=== PATIENT | male | born 1960 | race Caucasian/White ===

== ENCOUNTER 2020-08-23 05:15 | Outpatient (RCR) | payer MEDICARE, SELFPAY ==
[2020-08-23 09:20] VITALS: BP 113/69; PULSE 44; RESP 18; TEMP 37.1; O2SAT 99
[2020-08-23] MEDS: NATALIZUMAB 300 MG in Normal Saline 100 ML 115 MG IV (09:21)
[2020-08-23] MEDS: Normal Saline Flush 10 ML SYR IVP (09:22)
[2020-08-23 10:24] VITALS: BP 106/68; PULSE 44; RESP 18; TEMP 37; O2SAT 98
[2020-08-23] MEDS: Normal Saline 1,000 ML 500 ML IV (10:30)
== END 2020-09-15 23:59 | disposition home or self-care (01) ==
LOC: INF 05:15
PROVIDERS: PCP Family Medicine; Visit Provider Family Medicine
DX: R97.20 Elevated prostate specific antigen [PSA] (principal); G35 Multiple sclerosis
CPT/HCPCS: 96360; 96361; 96365; J2323

== ENCOUNTER 2020-08-27 01:08 | Outpatient (CLI) | payer MEDICARE, SELFPAY ==
--- NOTE | 2020-08-27 | DI.MRI_ITS ---
EXAM: MR CERVICAL SPINE WO CLINICAL HISTORY: MULTIPLE SCLEROSIS, G35 TECHNIQUE: Multiplanar multisequence MRI of the cervical spine was performed without intravenous con trast. COMPARISON: No previous for comparison. FINDINGS: BONES: Vertebral body heights are maintained. Intervertebral disc spaces are normal. Alignment is nor mal. Bone marrow signal intensity is within normal limits. CERVICAL CORD: Craniovertebral junction is unremarkable. There does appear to be an area of hyperinte nse signal within the spinal cord at the T2-T3 level. There also is a faint area of increased signal within the spinal cord at the C3 level. SOFT TISSUES: Unremarkable. C2-3: No disc herniation or bulge is identified. No significant central spinal canal or neural forami nal stenosis. C3-4: No disc herniation or bulge is identified. No significant central spinal canal or neural forami nal stenosis C4-5: No disc herniation or bulge is identified. No significant central spinal canal or neural forami nal stenosis C5-6: There is mild prominence of the osteophyte disc complex. No significant central spinal canal o r neural foraminal stenosis C6-7: There is a mild diffuse disc bulge. No significant central spinal canal or neural foraminal st enosis C7-T1: No disc herniation or bulge is identified. No significant central spinal canal or neural karol inal stenosis IMPRESSION: Hyperintense signal seen in the spinal cord at the C3 level and the T2-T3 level. Spinal cord lesions related to the patient's multiple sclerosis should be considered. If there are prior examinations o f the cervical spine, they may be submitted for comparison. DATA REPOSITORY:
--- NOTE | 2020-08-27 | DI.MRI_ITS ---
EXAM: MR BRAIN WO CLINICAL HISTORY: MULTIPLE SCLEROSIS, G35,LENA VIRUS ANTIBODY +,R78.8,Z51.81. TECHNIQUE: Multiplanar multisequence MRI of the brain was performed. CONTRAST MATERIAL: noncontrast. COMPARISON: No exams were available for comparison FINDINGS: There is moderate atrophy, disproportionate to the patient's age. There are multiple bilateral foci of high signal in the periventricular white matter, including corpus callosum, consistent with multip le sclerosis. No lesions show restricted diffusion. No cerebellar or brainstem lesions are seen. T he ventricles are normal in size. The orbits, sinuses and mastoid air cells are unremarkable. IMPRESSION: Numerous periventricular high signal foci with a pattern consistent with multiple sclerosis. DATA REPOSITORY:
== END 2020-08-27 01:28 ==
PROVIDERS: PCP Family Medicine; Visit Provider Family Medicine
DX: G35 Multiple sclerosis (principal)
CPT/HCPCS: 70551; 72141

== ENCOUNTER 2020-10-11 11:00 | Outpatient (RCR) | payer MEDICARE, SELFPAY ==
[2020-09-16 00:10] VITALS: BP 106/68; PULSE 44; RESP 18; TEMP 37
[2020-10-11 11:12] VITALS: BP 134/78; PULSE 54; RESP 18; TEMP 36.5; O2SAT 98
[2020-10-11] MEDS: NATALIZUMAB 300 MG in Normal Saline 100 ML 115 MG IV (11:33)
[2020-10-11] MEDS: Normal Saline Flush 10 ML SYR IVP (11:34)
[2020-10-11] MEDS: Normal Saline 1,000 ML 500 ML IV (12:34)
[2020-10-11 13:30] VITALS: BP 112/67; PULSE 44; RESP 16; TEMP 36.8; O2SAT 99
[2020-10-11 17:32] LABS: PSA, Diagnostic 0.3 ng/mL (0.0-4.5)
== END 2020-10-13 23:59 | disposition home or self-care (01) ==
LOC: INF 11:00
PROVIDERS: PCP Family Medicine; Visit Provider Family Medicine
DX: R97.20 Elevated prostate specific antigen [PSA] (principal); G35 Multiple sclerosis
CPT/HCPCS: 36415; 96360; 96361; 96365; 84153; J2323

== ENCOUNTER 2020-11-21 01:39 | Outpatient (RCR) | payer MEDICARE, SELFPAY ==
[2020-10-14 00:07] VITALS: BP 112/67; PULSE 44; RESP 16; TEMP 36.8
[2020-11-21 11:18] VITALS: BP 117/67; PULSE 50; RESP 16; TEMP 36.6; O2SAT 98
[2020-11-21] MEDS: Normal Saline Flush 10 ML SYR IVP (11:19)
[2020-11-21] MEDS: NATALIZUMAB 300 MG in Normal Saline 100 ML 115 MG IV (11:35)
[2020-11-21] MEDS: Normal Saline 500 ML IV (12:43)
[2020-11-21 13:35] VITALS: BP 109/64; PULSE 63; RESP 16; TEMP 36.7; O2SAT 100
== END 2020-12-13 23:59 | disposition home or self-care (01) ==
LOC: INF 01:39
PROVIDERS: PCP Family Medicine; Visit Provider Family Medicine
DX: R97.20 Elevated prostate specific antigen [PSA] (principal)
CPT/HCPCS: 96365; J2323

== ENCOUNTER 2021-05-22 02:42 | Outpatient (RCR) | payer MEDICARE, SELFPAY ==
[2021-05-22 11:10] VITALS: BP 101/65; PULSE 47; RESP 18; TEMP 36.6; O2SAT 100
[2021-05-22] MEDS: Normal Saline Flush 10 ML SYR IVP (11:13)
[2021-05-22] MEDS: NATALIZUMAB 300 MG in Normal Saline 100 ML 115 MG IV (11:26)
[2021-05-22] MEDS: Normal Saline 500 ML IV (12:27)
[2021-05-22 13:35] VITALS: BP 115/72; PULSE 46; RESP 18; TEMP 36.7; O2SAT 100
== END 2021-06-15 23:59 | disposition home or self-care (01) ==
LOC: INF 02:42
PROVIDERS: PCP Family Medicine; Visit Provider Internal Medicine
DX: R97.20 Elevated prostate specific antigen [PSA] (principal)
CPT/HCPCS: 96361; 96365; 96366; J2323

== ENCOUNTER 2021-08-28 02:23 | Outpatient (CLI) | payer MEDICARE, SELFPAY ==
--- NOTE | 2021-08-28 | DI.MRI_ITS ---
Exam(s) MR BRAIN WO EXAM: MR BRAIN WO CLINICAL HISTORY: MS,G35,LENA VIRUS ANTIBODY,R76.8,ENCOUNTER NATALIZUMAB THERAPY,Z51.81 TECHNIQUE: Multiplanar multisequence MRI of the brain was performed. COMPARISON: MR MRI BRAIN WITH AND WITHOUT IV CONTRAST from 01/19/2020 MR MR BRAIN WO from 08/27/2020 MR MR CERVICAL SPINE WO from 08/27/2020 FINDINGS: VENTRICLES AND EXTRA AXIAL SPACES: Normal in size and morphology for the patient's age. HEMORRHAGE: None. CEREBRAL PARENCHYMA: Btzv-ez-nazbkkci atrophy, stable. Multiple bilateral, roughly symmetric periven tricular white matter lesions have a stable appearance. The findings have a typical appearance of mu ltiple sclerosis. No focus of restricted diffusion to suggest acute infarct. No space-occupying lesi on identified. MIDLINE SHIFT: None. BRAINSTEM/CEREBELLUM: Normal. VISUALIZED PARANASAL SINUSES/MASTOIDS: Clear. OTHER FINDINGS: Vascular flow voids are intact. IMPRESSION: Stable appearance of bilateral periventricular white matter lesions consistent with multiple sclerosi s. DATA REPOSITORY:
--- NOTE | 2021-08-28 | DI.MRI_ITS ---
Exam(s) MR CERVICAL SPINE WO EXAM: MR CERVICAL SPINE WO CLINICAL HISTORY: MS,G35,ENCOUNTER FOR MONITORING NATALIZUMAB THERAPY,Z51.81 TECHNIQUE: Multiplanar multisequence MRI of the cervical spine was performed without intravenous con trast. COMPARISON: MR MR CERVICAL SPINE WO from 08/27/2020 FINDINGS: BONES: Vertebral body heights are maintained. Intervertebral disc spaces are normal. Alignment is nor mal. Bone marrow signal intensity is within normal limits. CERVICAL CORD: Craniovertebral junction is unremarkable. The cervical cord is normal size and signal intensity. SOFT TISSUES: Unremarkable. Discs: Mild disc bulging at C5-6. IMPRESSION: Normal cord signal. Minimal degenerative changes.. DATA REPOSITORY:
== END 2021-08-28 02:43 ==
PROVIDERS: PCP Family Medicine; Visit Provider Physician Assistant
DX: Z51.81 Encounter for therapeutic drug level monitoring (principal); G35 Multiple sclerosis; R76.8 Other specified abnormal immunological findings in serum
CPT/HCPCS: 70551; 72141

== ENCOUNTER 2023-05-20 03:55 | Outpatient (RCR) | payer MEDICARE, SELFPAY ==
[2023-05-20] MEDS: NATALIZUMAB 300 MG in Normal Saline 100 ML 115 MG IV (11:29)
[2023-05-20] MEDS: Normal Saline Flush 10 ML SYR IVP (11:30)
[2023-05-20 12:43] LABS: Abs Immature Grans 0.03 10^3/uL (0.0-0.06); Absolute Basophil Count 0.04 10^3/uL (0.0-0.2); Absolute Eosinophil Count 0.17 10^3/uL (0.0-0.7); Absolute Lymphocyte Count 1.95 10^3/uL (1.2-3.4); Absolute Monocyte Count 0.67 10^3/uL (0.1-0.8); Absolute Neutrophil Count 2.85 10^3/uL (1.2-6.7); Basophils % 0.7; HCT 34.5 % (40.0-50.0); Immature Grans % 0.5; Lymphocytes % 34.2; MCH 29.8 pg (27.0-33.0); MCHC 34.8 % (32.0-36.0); MCV 86 fL (80-95); MPV 9.9 fL (8.0-11.0); Monocytes % 11.7; Neutrophils % 49.9; Platelet Count 229 10^3/uL (130-400); RBC 4.03 10^6/uL (4.36-5.78); RDW 13.2 % (11.8-14.1); WBC 5.71 10^3/uL (4.4-10.8)
[2023-05-20 12:54] LABS: ALT 28 U/L (16-63); AST 22 U/L (15-37); Albumin 3.7 g/dL (3.4-5.0); Alkaline Phosphatase 62 U/L (46-116); Bilirubin, Direct 0.2 mg/dL (0.0-0.2); Bilirubin, Total 0.8 mg/dL (0.2-1.0); Total Protein 6.9 g/dL (6.4-8.2)
[2023-06-18 13:08] LABS: Stratify JCV Antibody INDETERMINATE (Negative)
== END 2023-06-15 23:59 | disposition home or self-care (01) ==
LOC: INF 03:55
PROVIDERS: PCP Family Medicine; Visit Provider Nurse Practitioner Acute Care
DX: G35 Multiple sclerosis (principal)
CPT/HCPCS: 36415; 80076; 96365; 85025; J2323

== ENCOUNTER 2023-07-01 04:20 | Outpatient (RCR) | payer MEDICARE, SELFPAY ==
[2023-07-01 11:25] VITALS: BP 110/64; PULSE 44; RESP 16; TEMP 36.8; O2SAT 98
[2023-07-01] MEDS: NATALIZUMAB 300 MG in Normal Saline 100 ML 115 MG IV (11:34)
[2023-07-01] MEDS: Normal Saline Flush 10 ML SYR IVP (11:35)
[2023-07-01 12:35] VITALS: BP 113/70; PULSE 51; RESP 17; TEMP 36.8; O2SAT 98
== END 2023-07-15 23:59 | disposition home or self-care (01) ==
LOC: INF 04:20
PROVIDERS: PCP Nurse Practitioner Family; Visit Provider Nurse Practitioner Acute Care
DX: G35 Multiple sclerosis (principal)
CPT/HCPCS: 96365; J2323

== ENCOUNTER 2023-09-02 12:29 | Outpatient (CLI) | payer MEDICARE, SELFPAY ==
[2023-09-02 12:38] LABS: Abs Immature Grans 0.03 10^3/uL (0.0-0.06); Absolute Basophil Count 0.04 10^3/uL (0.0-0.2); Absolute Eosinophil Count 0.18 10^3/uL (0.0-0.7); Absolute Lymphocyte Count 2.15 10^3/uL (1.2-3.4); Absolute Monocyte Count 0.76 10^3/uL (0.1-0.8); Absolute Neutrophil Count 3.41 10^3/uL (1.2-6.7); Basophils % 0.6; Eosinophils % 2.7; HCT 36.8 % (40.0-50.0); HGB 12.2 g/dL (13.5-17.5); Immature Grans % 0.5; Lymphocytes % 32.7; MCH 29.1 pg (27.0-33.0); MCHC 33.2 % (32.0-36.0); MCV 88 fL (80-95); MPV 8.9 fL (8.0-11.0); Monocytes % 11.6; Neutrophils % 51.9; Nucleated RBC 0.3 % (0.0-0.3); Platelet Count 224 10^3/uL (130-400); RBC 4.19 10^6/uL (4.36-5.78); RDW 14.5 % (11.8-14.1); RDW-SD 46.5 fL; Reticulocyte 1.4 % (0.5-2.4); WBC 6.57 10^3/uL (4.4-10.8)
[2023-09-02 12:58] LABS: Calculated LDL 83 mg/dL (<100); Cholesterol 197 mg/dL (<200); HDL Cholesterol 97 mg/dL (40-60); Triglyceride 87 mg/dL (<150)
[2023-09-02 13:18] LABS: Ferritin 16 ng/mL (26-388); Folate 8.9 ng/mL (8.6-20.0); Vitamin B12 1030 pg/mL (193-986)
[2023-09-16 16:29] LABS: PSA, Screening 0.3 ng/mL (<or=4.5)
== END 2023-09-02 12:30 | disposition home or self-care (01) ==
LOC: LBO 12:29
PROVIDERS: PCP Nurse Practitioner Family; Visit Provider Internal Medicine Hematology & Oncology
DX: D64.9 Anemia, unspecified (principal); Z13.6 Encounter for screening for cardiovascular disorders; Z12.5 Encounter for screening for malignant neoplasm of prostate
CPT/HCPCS: 36415; 80061; 84153; 82607; 82728; 82746; 85025; 85045

== ENCOUNTER 2023-09-23 02:01 | Outpatient (RCR) | payer MEDICARE, SELFPAY ==
[2023-07-16 00:08] VITALS: BP 113/70; PULSE 51; RESP 17; TEMP 36.8
[2023-09-23] MEDS: NATALIZUMAB 300 MG in Normal Saline 100 ML 115 MG IV (11:45)
[2023-09-23] MEDS: Normal Saline Flush 10 ML SYR IVP (11:46)
[2023-09-23 11:53] LABS: HCT 35.3 % (40.0-50.0); HGB 12.1 g/dL (13.5-17.5); MCH 29.2 pg (27.0-33.0); MCHC 34.3 % (32.0-36.0); MCV 85 fL (80-95); MPV 9.3 fL (8.0-11.0); Platelet Count 211 10^3/uL (130-400); RBC 4.14 10^6/uL (4.36-5.78); RDW-SD 43.6 fL; WBC 6.34 10^3/uL (4.4-10.8)
[2023-09-23 12:05] LABS: ALT 31 U/L (16-63); AST 20 U/L (15-37); Albumin 3.8 g/dL (3.4-5.0); Alkaline Phosphatase 54 U/L (46-116); Bilirubin, Direct 0.2 mg/dL (0.0-0.2); Bilirubin, Total 0.5 mg/dL (0.2-1.0); Total Protein 6.8 g/dL (6.4-8.2)
[2023-10-13 08:50] LABS: Stratify JCV Antibody See Comments (Negative)
== END 2023-10-14 23:59 | disposition home or self-care (01) ==
LOC: INF 02:01
PROVIDERS: PCP Nurse Practitioner Family; Visit Provider Nurse Practitioner Acute Care
DX: G35 Multiple sclerosis (principal)
CPT/HCPCS: 36415; 80076; 85027; 96365; J2323

== ENCOUNTER → 2023-09-30 13:31 | Outpatient (BNVA) | payer MEDICARE, SELFPAY | PROVIDERS: PCP Nurse Practitioner Family; Referring Provider Nurse Practitioner Family; Visit Provider Physical Therapy Assistant | DX: Z12.11 Encounter for screening for malignant neoplasm of colon (principal); Z86.010 Personal history of colon polyps ==

== ENCOUNTER 2023-10-13 06:17 | Day surgery (SDC) | payer MEDICARE, SELFPAY ==
--- NOTE | 2023-10-13 06:17 | W.ANESPRE ---
General Info Date of Service Date Performed: 10/13/23 Height: 6 ft 1.5 in Weight: 93.894 kg Body Mass Index (BMI): 26.9 Surgical Procedure: Operation Date: 10/13/23 07:35 Proposed Procedure Side Surgeon arnaldo Fairbanks MD Meds Allergies and Home Medications Allergies Allergy/AdvReac Type Severity Reaction Status Date / Time Penicillins Allergy Unknown Hives Verified 10/13/23 06:36 Home Medication Medication Instructions Recorded cholecalciferol (vitamin D3) 62.5 62.5 mcg PO DAILY 08/25/23 mcg (2,500 unit) capsule cyanocobalamin (vitamin B-12) 2,500 mcg PO DAILY 08/25/23 2,500 mcg tablet finasteride 5 mg tablet 5 mg PO DAILY 08/25/23 natalizumab 300 mg/15 mL 300 mg (15 mL) IV Q6W 08/25/23 intravenous solution (Tysabri) omeprazole 40 mg capsule,delayed 40 mg PO DAILY 08/25/23 release tadalafil 5 mg tablet 5 mg PO DAILY PRN 08/25/23 bisacodyl 5 mg tablet,delayed 5 mg PO ONCE #4 tabs 09/30/23 release (Dulcolax (bisacodyl)) polyethylene glycol 3350 17 17 g PO ONCE #238 grams 09/30/23 gram/dose oral powder aspirin 325 mg capsule 325 mg PO DAILY 10/11/23 Current Visit Medications: Current Medications Generic Name Dose Route Start Last Admin Trade Name Freq PRN Reason Stop Dose Admin Ringer's Solution 1,000 mls @ 80 mls/hr 10/13/23 06:00 IV 10/13/23 23:59 INFUSION NELLIE IV Miscellaneous Supplies 1 each 10/13/23 06:00 Iv Access IV 10/13/23 23:59 DIRECTED NELLIE Sodium Chloride 0 ml 10/13/23 06:00 Normal Saline Flush 10 Ml Syr IV 10/13/23 23:59 PRN PRN Sodium Chloride 0 ml 10/13/23 06:00 Normal Saline 10 Ml Vial IJ 10/13/23 23:59 DIRECTED PRN Sterile Water 0 ml 10/13/23 06:00 Water,Injection,Sterile 10 Ml Vial IJ 10/13/23 23:59 DIRECTED PRN PFSH Active Problems Active Problems: Problem Status Onset Code 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 IBS (irritable bowel syndrome) K58.9 Spastic bladder N32.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 Anxiety F41.9 Multiple sclerosis G35 Medical History Medical History Depression Kidney stone Abnormal stress ECG Surgical History Surgical History History of ureteroscopy (~2017) L ureteroscopy w/ laser lithotripsy and ureteral stent placement, R retrograde scopy w/ stone extraction, stent placement and pyelography Hx of tonsillectomy (~196) History of colon resection (~11/02/17) [place], CT tubulovillous adenoma w/ focus high gr dyplasia, polypoid mass in desc colon Tobacco Smoking/Tobacco Use Status: Never Passive smoking exposure: Yes Second hand exposure: Yes Alcohol Alcohol Intake: current Alcohol intake frequency: a few times a month Alcohol type: beer and wine Substance Use Substance use: Daily Substance use type: marijuana Vital Signs and Lab Results Vital Signs Most Recent Vital Signs in EMR: Temp Pulse Resp BP Pulse Ox 36.6 C 43 L 15 117/73 99 10/13/23 06:20 10/13/23 06:20 10/13/23 06:20 10/13/23 06:20 10/13/23 06:20 Lab Results Blood Type / Crossmatch: No Data to Display Complete Blood Count: White Blood Count 6.34 10^3/uL (4.4-10.8) 09/23/23 11:35 Red Blood Count 4.14 10^6/uL (4.36-5.78) L 09/23/23 11:35 Hemoglobin 12.1 g/dL (13.5-17.5) L 09/23/23 11:35 Hematocrit 35.3 % (40.0-50.0) L 09/23/23 11:35 Platelet Count 211 10^3/uL (130-400) 09/23/23 11:35 Complete Metabolic Panel: Albumin 3.8 g/dL (3.4-5.0) 09/23/23 11:35 Liver Function Panel: Alanine Aminotransferase (ALT/SGPT) 31 U/L (16-63) 09/23/23 11:35 Aspartate Amino Transf (AST/SGOT) 20 U/L (15-37) 09/23/23 11:35 Coagulation Panel: No Data to Display Cardiac Panel: No Data to Display Arterial Blood Gas: No Data to Display Venous Blood Gas: No Data to Display Pancreas Panel: No Data to Display Thyroid Panel: No Data to Display Infectious Disease: No Data to Display Blood Cultures: No Data to Display Toxicology Panel: No Data to Display Anesthesia Assessment and Plan Anesthesia History Personal History: No History of Anesthesia Complications Family History: No Family History of Anesthesia Complications Exercise Tolerance Exercise Tolerance: Metabolic Equivalents>4 Cardiac & Pulmonary Exam Cardiac Exam: Normal S1/S2 Heart Sounds Pulmonary Exam: Clear Bilateral Breath Sounds Implantable Cardiac Device Does patient have a Pacemaker or an ICD?: No Airway Exam Known Difficult Airway: No Mallampati Class: 4 Mouth Opening: Normal (> 3cm) Thyromental Distance: Greater than 3 cm Neck Range of Motion: Full ROM Neck Circumference: Normal Teeth Condition: Normal Dentition ASA Classification ASA Score: ASA 2 Emergency Case?: No NPO Status NPO Status: NPO Clears >2 hours, Solids >8 hours Anesthesia Plan Resuscitation Status: Full Code Anesthesia Technique: General Anesthesia Airway Planned: Natural Airway Monitors Used: Standard Monitors Preoperative Comments:: 53 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 Sig PMHx: GERD, depression/anxiety, left foot drop, MS, spasticity. never smoker, occ EtOH.
[2023-10-13 06:20] VITALS: BP 117/73; PULSE 43; RESP 15; TEMP 36.6; O2SAT 99
[2023-10-13] MEDS: Lactated Ringers 1,000 ML 80 ML IV (06:53)
[2023-10-13 07:08] VITALS: BMI 26.9
--- NOTE | 2023-10-13 08:34 | BOWEL_PTH ---
PATIENT: Jayme Martinez LOC: [facility] U#:[id number] AGE/SX: 63/M ROOM: RE10/13/[address]: Kennedy Fairbanks : 1960 BED: DIS: 10/13/2023 SPEC #: [id number] RECD: 10/13/23 12:47 STATUS: BERNICE RE #: [id number] MARELY: 10/13/23 08:[address]: Kennedy Fairbanks DEPT: Surgical Specimen RECD BY: Keiry Watt ENTERED: 10/13/23 12:48 SP TYPE: Bowel OTHR DR: Kain Nunez, PHLEBOTOMY LAB ASSISTANT Tissues: 1 - BIOPSY BOWEL 2 - BIOPSY BOWEL 3 - BIOPSY BOWEL 4 - BIOPSY BOWEL Procedures: GROSS AND MICRO LEVEL 4 Comments: [id number]
[2023-10-13 08:57] VITALS: BP 104/66; PULSE 48; RESP 16; TEMP 36.5; O2SAT 97
--- NOTE | 2023-10-13 09:07 | W.COLOREPORT ---
Date of service: 10/13/23 Time of Service: 09:07 Colonoscopy Report Procedure Description: PROCEDURES PERFORMED: 1. Colonoscopy with hot snare polypectomy x6 2. Ablation/fulguration/destruction of polyp x 4 PREOPERATIVE DIAGNOSIS: Surveillance colonoscopy, Navas syndrome, colorectal polyps POSTOPERATIVE DIAGNOSIS: Same SURGEON: Carlos Eduardo Fairbanks MD INDICATION for procedure: The patient is a 63-year-old man with a history of Navas syndrome, advanced colorectal polyps requiring hemicolectomy, multiple family members with had colon cancer including his father. He gets surveillance colonoscopies every year. FINDINGS: Ileocolonic anastomosis patent and healthy. Normal ileum. No evidence of cancer or polyp around the anastomosis. In the transverse colon to 3-5 mm sessile polyps were removed with hot snare technique. Another smaller 1 was ablated with the tip of the hot snare. In the descending colon at 40 cm a large 15-18 mm pedunculated polyp was removed with hot snare technique. In the sigmoid colon two 3-5 mm sessile polyps were removed with hot snare technique. In the rectum a 3?5 mm polyp was removed with hot snare technique. Between the rectum and sigmoid colon another 3 small polyps were ablated with the tip of the hot snare. There was no obvious diverticular disease and no significant hemorrhoid disease. SURVEILLANCE interval/FOLLOW-UP: 1 year SPECIMENS: yes EBL: Minimal COMPLICATIONS: None QUALITY of prep: Excellent Procedure in detail: The patient gave written consent and was in agreement with the indications, the potential risks as well as the benefits of the procedure. They taken to the endoscopy suite and laid in the left lateral decubitus position. A timeout was performed and anesthesia was administered which was tolerated well. I started the procedure. Digital rectal and visual examination was performed and grossly within normal limits. A well-lubricated flexible colonoscope was then introduced and passed without any notable difficulty all the way into the ileum at the ileocolonic anastomosis the scope was then slowly withdrawn with the above-noted findings. The patient tolerated the procedure well and was taken to the PACU in hemodynamically stable condition.
--- NOTE | 2023-10-13 09:09 | W.ANESPOSTOP ---
Postoperative Evaluation Date, Time and Location Date Performed: 10/13/23 Time Performed: 09:10 Patient Location: Day Surgery Unit Vital Signs Most Recent Imported Vital Signs: Most Recent Vital Signs Temp Pulse Resp BP Pulse Ox 36.5 C 48 L 16 104/66 97 10/13/23 08:57 10/13/23 08:57 10/13/23 08:57 10/13/23 08:57 10/13/23 08:57 Pain Score Most Recent Pain Score: Most Recent Pain Score Pain Level 0 10/13/23 08:57 Assessment Mental Status: Awake (Alert & Oriented to Patient Baseline) Airway and Respiratory Function: Patent airway with normal (patient baseline) respiratory exam Cardiovascular Function: Hemodynamically Stable Hydration Status: Adequately Hydrated Nausea & Vomiting: No Nausea or Vomiting Pain: Pt. Denies Any Pain Peripheral Nerve Block: Patient did not receive a nerve block
--- NOTE | 2023-10-13 09:11 | W.PM.DSUDISC ---
Date of service: 10/13/23 Time of Service: 09:11 Discharge Plan Disposition Patient Disposition: Home Condition: Good Discharge Details Attending Provider: Kennedy Fairbanks Primary Care Provider: Kain Nunez Home Meds and New Rx's Prescriptions: No Action omeprazole 40 mg capsule,delayed release(DR/EC) 40 mg PO DAILY Patient Comments: TAKE ONE CAPSULE BY MOUTH EVERY DAY finasteride 5 mg tablet 5 mg PO DAILY Patient Comments: TAKE ONE TABLET BY MOUTH EVERY DAY tadalafil 5 mg tablet 5 mg PO DAILY PRN Patient Comments: TAKE ONE TABLET BY MOUTH EVERY DAY NEEDED FOR ERECTILE DYSFUNCTION cholecalciferol (vitamin D3) 62.5 mcg (2,500 unit) capsule 62.5 mcg PO DAILY cyanocobalamin (vitamin B-12) 2,500 mcg tablet 2,500 mcg PO DAILY Rx Instructions: 1250mcg daily Tysabri 300 mg/15 mL solution 300 mg IV Q6W Rx Instructions: administer over 60 mins bisacodyl [Dulcolax (bisacodyl)] 5 mg tablet,delayed release (DR/EC) 5 mg PO ONCE Qty: 4 0RF Rx Instructions: Take per colonoscopy instructions provided by ordering providers office polyethylene glycol 3350 17 gram/dose powder 17 g PO ONCE Qty: 238 0RF Rx Instructions: Take per colonoscopy instructions provided by ordering providers office aspirin 325 mg capsule 325 mg PO DAILY Discharge Instructions Additional Instructions: FINDINGS: Multiple polyps (about 10) were found and removed today. This is why you do the colonoscopies. You should do another colonoscopy in 1 year. Discharge Orders Discharge Orders: Discharge Order (Routine); Ordered 10/13/23 Ordered By: Kennedy Fairbanks
[2023-10-13 09:31] VITALS: BP 118/74; PULSE 38; RESP 16; TEMP 36.5; O2SAT 98
== END 2023-10-13 10:00 | disposition home or self-care (01) ==
PROVIDERS: PCP Nurse Practitioner Family; Visit Provider Student in an Organized Health Care Education/Training Program
PROC: 0DJD8ZZ Inspection of Lower Intestinal Tract, Via Natural or Artificial Opening Endoscopic (ICD-10-PCS; CPT 45378; principal; 2023-10-13 07:30)
DX: Z12.11 Encounter for screening for malignant neoplasm of colon (principal); D12.3 Benign neoplasm of transverse colon; Z15.09 Genetic susceptibility to other malignant neoplasm; Z80.0 Family history of malignant neoplasm of digestive organs; Z90.49 Acquired absence of other specified parts of digestive tract; Z98.0 Intestinal bypass and anastomosis status; D12.5 Benign neoplasm of sigmoid colon; D37.4 Neoplasm of uncertain behavior of colon
CPT/HCPCS: 45388; 45385; 00123; 88305; J2704

== ENCOUNTER 2023-11-04 05:14 | Outpatient (RCR) | payer MEDICARE, SELFPAY ==
[2023-10-15 00:01] VITALS: BP 113/70; PULSE 51; RESP 17; TEMP 36.8
[2023-11-04] MEDS: NATALIZUMAB 300 MG in Normal Saline 100 ML 115 MG IV (11:30)
[2023-11-04] MEDS: Normal Saline Flush 10 ML SYR IVP (11:30)
== END 2023-11-14 23:59 | disposition home or self-care (01) ==
LOC: INF 05:14
PROVIDERS: PCP Nurse Practitioner Family; Visit Provider Nurse Practitioner Acute Care
DX: G35 Multiple sclerosis
CPT/HCPCS: 96365; J2323

== ENCOUNTER 2023-11-10 04:46 | Outpatient (CLI) | payer MEDICARE, SELFPAY ==
[2023-11-10 11:15] LABS: Abs Immature Grans 0.02 10^3/uL (0.0-0.06); Absolute Basophil Count 0.04 10^3/uL (0.0-0.2); Absolute Eosinophil Count 0.22 10^3/uL (0.0-0.7); Absolute Lymphocyte Count 2.21 10^3/uL (1.2-3.4); Absolute Monocyte Count 0.74 10^3/uL (0.1-0.8); Absolute Neutrophil Count 3.46 10^3/uL (1.2-6.7); Basophils % 0.6; Eosinophils % 3.3; HCT 38.2 % (40.0-50.0); HGB 13.1 g/dL (13.5-17.5); Immature Grans % 0.3; MCH 30.4 pg (27.0-33.0); MCHC 34.3 % (32.0-36.0); MCV 89 fL (80-95); MPV 8.8 fL (8.0-11.0); Monocytes % 11.1; Neutrophils % 51.7; Platelet Count 197 10^3/uL (130-400); RBC 4.31 10^6/uL (4.36-5.78); RDW 13.6 % (11.8-14.1); RDW-SD 44.7 fL; WBC 6.69 10^3/uL (4.4-10.8)
[2023-11-10 11:45] LABS: Ferritin 128 ng/mL (26-388)
== END 2023-11-10 04:47 | disposition home or self-care (01) ==
PROVIDERS: PCP Nurse Practitioner Family; Visit Provider Internal Medicine Hematology & Oncology
DX: D64.9 Anemia, unspecified (principal)
CPT/HCPCS: 36415; 82728; 85025

== ENCOUNTER 2023-12-16 04:46 | Outpatient (RCR) | payer MEDICARE, SELFPAY ==
[2023-11-15 00:13] VITALS: BP 113/70; PULSE 51; RESP 17; TEMP 36.8
[2023-12-16] MEDS: NATALIZUMAB 300 MG in Normal Saline 100 ML 115 MG IV (11:26)
[2023-12-16] MEDS: Normal Saline Flush 10 ML SYR IVP (11:26)
== END 2024-01-14 23:59 | disposition home or self-care (01) ==
LOC: INF 04:46
PROVIDERS: PCP Nurse Practitioner Family; Visit Provider Nurse Practitioner Acute Care
DX: G35 Multiple sclerosis (principal)
CPT/HCPCS: 96365; J2323

== ENCOUNTER → 2024-01-26 00:10 | Outpatient (CLI) | payer MEDICARE, SELFPAY ==
--- NOTE | 2024-01-26 | DI.MRI_ITS ---
Exam(s) MR CERVICAL SPINE WO EXAM: MR CERVICAL SPINE WO CLINICAL HISTORY: MS, G35 TECHNIQUE: Multiplanar multisequence MRI of the cervical spine was performed without intravenous con trast. COMPARISON: MR MR CERVICAL SPINE WO from 08/28/2021 MR MRI CERVICAL SPINE WO CONTRAST from 01/19/2023 MR MR THORACIC SPINE WO from 01/26/2024 FINDINGS: CERVICOMEDULLARY JUNCTION: Intact with no evidence of cerebellar tonsillar ectopia. No obvious abnor mality of the odontoid process. No evidence of Chiari 1 malformation. CERVICAL SPINAL CORD: There is no abnormal signal in the cervical spinal cord and no evidence of foca l cord atrophy nor focal cord swelling. No evidence of syringomyelia. This patient with apparent known history of multiple sclerosis there is again noted an elongated intr amedullary lesions/plaque in the lateral left side of the spinal cord at C2 level, measuring 2 cm target aircraft technician niocaudal length, unchanged. There is also a longitudinal E orientated intramedullary lesion in the l eft lateral aspect of the spinal cord at C3 level, also unchanged. This measures approximately 1.2 cm craniocaudal length. Another intramedullary area of hyperintense signal abnormality is noted in the right side of the colored at C 2-3 level, unchanged. Lower down there is a similar type lesion in the left side of the cord at T3 level measuring 0.8 cm length. This is better seen on the cervical study than on the thoracic MRI study. OSSEOUS:There are no cervical fractures evident. No significant osseous lesions in the cervical vert ebrae. Cervical curvature is normal. INDIVIDUAL DISC LEVELS: There is preserved disc height and signal at all levels. There is mild central annular bulging at C4- 5 and C6-7 levels. There are no prominent disc herniations. No central spinal canal stenosis. There i s no prominent facet arthropathy nor Luschka joint osteophytes and there is no foraminal stenosis yfn dent in the cervical spinal column. IMPRESSION: 1. Spinal cord lesions consistent with chronic multiple sclerosis plaques at C1 through C3, appearing basically unchanged from the prior study of January 2023. Also plaque at the level of the T3 spinal cor d also appears unchanged. Please note that this is a noninfused study. 2. There is no evidence of focal spinal cord swelling nor atrophy and there is no evidence of syringo myelia. 3. There are no significant disc herniations, central canal stenosis, nor foraminal stenosis. DATA REPOSITORY:
--- NOTE | 2024-01-26 | DI.MRI_ITS ---
Exam(s) MR BRAIN WO EXAM: MR BRAIN WO CLINICAL HISTORY: MS, G35; DEMYELINATING DISORDER, SURVEILLANCE TECHNIQUE: Multiplanar multisequence MRI of the brain was performed. COMPARISON: MR MR BRAIN WO from 08/28/2021 MR MRI CERVICAL SPINE WO CONTRAST from 01/19/2023 FINDINGS: CEREBRAL PARENCHYMA: There is no evidence of intracranial hemorrhage, mass effect, or shift of midline structures. There are no extra-axial fluid collections. Ventricles are not enlarged or shifted. There is no significant focal signal abnormality in the cerebellar hemispheres nor within the alanis, m idbrain, and thalami. Again noted is abundant bilateral periventricular confluent and patchy signal abnormality, including whole Hopper's fingers at the level of the corpus callosum, similar to previous. There is no significant focal signal abnormality evident on diffusion imaging to suggest acute ischem ic event. PITUITARY GLAND: No mass nor parasellar abnormality. No obvious abnormality in the cavernous sinuses. FLOW VOIDS: The expected flow void are noted. No evidence of obvious aneurysm nor obvious vascular ma lformation. PARANASAL SINUSES: The visualized paranasal sinuses appear unremarkable. No obvious finding ORBITS: No obvious findings. IMPRESSION: Abundant bilateral An and supra ventricular signal abnormality consistent with probable combination of demyelinating disease and chronic ischemic changes. Findings exhibit minimal if any significant change when compared to the prior MRI scan of 08/28/2021. No new areas of restricted diffusion. DATA REPOSITORY:
--- NOTE | 2024-01-26 | DI.MRI_ITS ---
Exam(s) MR THORACIC SPINE WO EXAM: MR THORACIC SPINE WO CLINICAL HISTORY: Multiple sclerosis G35 TECHNIQUE: Multiplanar multisequence MRI of the thoracic spine was performed without intravenous con trast. COMPARISON: MR MRI THORACIC SPINE WO CONTRAST from 01/19/2023 FINDINGS: OSSEOUS: There are no acute appearing thoracic vertebral fractures. Multilevel shallow nonacute appea ring Schmorl's nodes. There is a 1 cm size benign intraosseous hemangioma in the left side of the L1 vertebral body, unchanged. There are no ominous osseous lesions in the thoracic vertebrae. SIGNIFICANT DISC SPACE FINDINGS: There is no evidence of disc herniation or central spinal canal sten osis. No evidence of foraminal stenosis. THORACIC SPINAL CORD: There is very subtle cord signal abnormality evident at T2-3 level. Apparently better seen on cervical sequences. There is no evidence of syringomyelia nor significant spinal cord dysraphism. There is no evidence of mass at the conus medullaris. The position of the conus medullaris is at normal level. PARASPINAL TISSUES: Benign benign 1.5 cm cyst noted in the right kidney. IMPRESSION: 1. Subtle abnormal spine cord signal at T2-3, difficult to assess accurately without IV contrast. No cord swelling nor atrophy at this level. 2. No disc herniation or central canal stenosis nor foraminal stenosis. 3. Benign intraosseous hemangioma noted in the left side of L1 vertebral body. See separate cervical spine MRI report DATA REPOSITORY:
--- NOTE | 2024-01-26 20:33 | DI.VRAD_ITS ---
PROCEDURE INFORMATION: Exam: MR Cervical Spine Without Contrast Exam date and time: 01/26/2024 1:33 PM Age: 63 years old Clinical indication: Other: Ms TECHNIQUE: Imaging protocol: Magnetic resonance imaging of the cervical spine without contrast. COMPARISON: MRI CERVICAL SPINE WO CONTRAST 01/19/2023 2:00 PM FINDINGS: Bones/joints: Craniocervical alignment is normal. No fracture or malalignment. Disc desiccation C2-C3 through C5-C6. Minimal 1-2 mm noncompressive posterior central annular protrusions are present at C4-C5 and C6-C7 with slight 1 mm posterior annular bulge C5-C6. No disc extrusion. 6 mm stir hyperintense intramedullary lesion at the level of the odontoid unchanged. Elongated ovoid intramedullary lesion in the left lateral cord at the C2 level measuring 2.2 cm in length unchanged. Elongated ovoid intramedullary lesion in the left lateral cord at the C3 level unchanged. Intramedullary STIR hyperintense lesion in the right lateral cord at the C2-C3 disc level unchanged. There is no cord expansion or hemorrhage. No new cord lesions in the cervical spine. Intramedullary cord lesion at the level of the T3 superior endplate also unchanged. Spinal cord: Cervical spinal cord demonstrates normal contour. No syringohydromyelia. Brain: Poorly marginated mild T2/stir hyperintensity involving the bilateral brachium pontis distributions, and marginally visualized at the right anterolateral pontine margin, suspicious for age-indeterminate changes of demyelination. Vasculature: Expected flow voids in the vertebral arteries. Soft tissues: Unremarkable IMPRESSION: 1. Cord lesions consistent with chronic MS plaques at the C1 through C3 levels are unchanged from 01/19/2023. No new cervical cord lesions are identified. 2. Patchy mild STIR hyperintensity in the bilateral brachium pontis distribution concerning for mild changes of chronic demyelination are stable in appearance from 01/19/2023. 3. Additional nonemergent findings detailed above. Dictated and Authenticated by: Joe Dias MD. Ordering:CARLY Telles MD
== END ==
PROVIDERS: PCP Nurse Practitioner Family; Visit Provider Student in an Organized Health Care Education/Training Program
DX: G35 Multiple sclerosis (principal)
CPT/HCPCS: 70551; 72141; 72146

== ENCOUNTER 2024-01-27 00:43 | Outpatient (RCR) | payer MEDICARE, SELFPAY ==
[2024-01-15 00:16] VITALS: BP 113/70; PULSE 51; RESP 17; TEMP 36.8
[2024-01-27] MEDS: Normal Saline Flush 10 ML SYR IVP (11:42)
[2024-01-27] MEDS: NATALIZUMAB 300 MG in Normal Saline 100 ML 115 MG IV (11:42)
[2024-01-27 12:11] LABS: HCT 35.9 % (40.0-50.0); HGB 12.3 g/dL (13.5-17.5); MCH 29.9 pg (27.0-33.0); MCHC 34.3 % (32.0-36.0); MCV 87 fL (80-95); MPV 9.6 fL (8.0-11.0); Platelet Count 216 10^3/uL (130-400); RBC 4.11 10^6/uL (4.36-5.78); RDW 13.8 % (11.8-14.1); RDW-SD 44.3 fL; WBC 6.17 10^3/uL (4.4-10.8)
[2024-01-27 12:23] LABS: ALT 32 U/L (16-63); AST 18 U/L (15-37); Albumin 3.8 g/dL (3.4-5.0); Alkaline Phosphatase 61 U/L (46-116); Bilirubin, Direct 0.2 mg/dL (0.0-0.2); Bilirubin, Total 0.7 mg/dL (0.2-1.0); Total Protein 6.9 g/dL (6.4-8.2)
[2024-02-21 13:16] LABS: Stratify JCV Antibody See Comments (Negative)
== END 2024-02-13 23:59 | disposition home or self-care (01) ==
LOC: INF 00:43
PROVIDERS: PCP Nurse Practitioner Family; Visit Provider Nurse Practitioner Acute Care
DX: G35 Multiple sclerosis (principal)
CPT/HCPCS: 36415; 80076; 85027; 96365; J2323

== ENCOUNTER 2024-02-02 11:58 | Outpatient (CLI) | payer MEDICARE, SELFPAY ==
[2024-02-02 12:50] LABS: Abs Immature Grans 0.02 10^3/uL (0.0-0.06); Absolute Basophil Count 0.05 10^3/uL (0.0-0.2); Absolute Eosinophil Count 0.16 10^3/uL (0.0-0.7); Absolute Lymphocyte Count 2.46 10^3/uL (1.2-3.4); Absolute Monocyte Count 0.81 10^3/uL (0.1-0.8); Absolute Neutrophil Count 3.38 10^3/uL (1.2-6.7); Basophils % 0.7 %; Eosinophils % 2.3 %; HCT 37.3 % (40.0-50.0); HGB 12.8 g/dL (13.5-17.5); Immature Grans % 0.3 %; Lymphocytes % 35.8 %; MCH 30.1 pg (27.0-33.0); MCHC 34.3 % (32.0-36.0); MCV 88 fL (80-95); MPV 9.4 fL (8.0-11.0); Monocytes % 11.8 %; Neutrophils % 49.1 %; Nucleated RBC 0.3 % (0.0-0.3); Platelet Count 224 10^3/uL (130-400); RBC 4.25 10^6/uL (4.36-5.78); RDW 13.9 % (11.8-14.1); RDW-SD 44.2 fL; WBC 6.88 10^3/uL (4.4-10.8)
[2024-02-02 13:37] LABS: Ferritin 141 ng/mL (26-388)
== END 2024-02-02 11:59 | disposition home or self-care (01) ==
LOC: LBO 11:59
PROVIDERS: PCP Nurse Practitioner Family; Visit Provider Internal Medicine Hematology & Oncology
DX: D64.9 Anemia, unspecified (principal)
CPT/HCPCS: 36415; 82728; 85025

== ENCOUNTER 2024-03-07 01:21 | Outpatient (RCR) | payer MEDICARE, SELFPAY ==
[2024-02-14 00:21] VITALS: BP 113/70; PULSE 51; RESP 17; TEMP 36.8
[2024-03-07] MEDS: NATALIZUMAB 300 MG in Normal Saline 100 ML 115 MG IV (13:20)
[2024-03-07] MEDS: Normal Saline Flush 10 ML SYR IVP (13:21)
== END 2024-03-15 23:59 | disposition home or self-care (01) ==
LOC: INF 01:21
PROVIDERS: PCP Nurse Practitioner Family; Visit Provider Nurse Practitioner Acute Care
DX: G35 Multiple sclerosis (principal)
CPT/HCPCS: 96365; J2323

== ENCOUNTER 2024-03-21 12:19 | Outpatient (CLI) | payer MEDICARE, SELFPAY ==
--- NOTE | 2024-03-21 12:15 | RT.EKG_ITS ---
APPROVED REPORT Exam: Resting ECG Reason for Exam: abnormal EKG Patient Location: O HR:40 bpm ECG Measurements Heart Rate 40 AXIS MT 185 P 77 QRSd 140 QRS 67 QT 499 T 56 QTc 407 Conclusion Sinus bradycardia...rate< 50 Right bundle branch block...QRSd>120, terminal axis(90,270) Left ventricular hypertrophy...multiple voltage criteria
== END 2024-03-21 12:20 | disposition home or self-care (01) ==
LOC: DI.CARD 12:20
PROVIDERS: PCP Nurse Practitioner Family; Visit Provider Internal Medicine Cardiovascular Disease
DX: R94.39 Abnormal result of other cardiovascular function study (principal); I51.7 Cardiomegaly; I45.10 Unspecified right bundle-branch block; R00.1 Bradycardia, unspecified; Z82.49 Family history of ischemic heart disease and other diseases of the circulatory system
CPT/HCPCS: 93010

== ENCOUNTER → 2024-03-21 13:02 | Outpatient (BNVA) | payer MEDICARE, SELFPAY | PROVIDERS: PCP Nurse Practitioner Family; Referring Provider Nurse Practitioner Family; Visit Provider Internal Medicine Cardiovascular Disease | DX: R00.1 Bradycardia, unspecified (principal); I45.10 Unspecified right bundle-branch block; Z82.49 Family history of ischemic heart disease and other diseases of the circulatory system; R94.39 Abnormal result of other cardiovascular function study | CPT/HCPCS: 93005; 99214 ==

== ENCOUNTER → 2024-03-23 13:06 | Outpatient (BNVA) | payer MEDICARE, SELFPAY | PROVIDERS: PCP Nurse Practitioner Family; Referring Provider Nurse Practitioner Family; Visit Provider Psychiatry & Neurology Neurology | DX: G35 Multiple sclerosis (principal); R25.2 Cramp and spasm | CPT/HCPCS: 99215; G2212 ==

== ENCOUNTER 2024-04-18 11:16 | Outpatient (RCR) | payer MEDICARE, SELFPAY ==
[2024-03-16 00:13] VITALS: BP 113/70; PULSE 51; RESP 17; TEMP 36.8
[2024-04-18] MEDS: Normal Saline Flush 10 ML SYR IVP (11:51)
[2024-04-18] MEDS: NATALIZUMAB 300 MG in Normal Saline 100 ML 115 MG IV (11:51)
== END 2024-05-15 23:59 | disposition home or self-care (01) ==
LOC: INF 11:16
PROVIDERS: PCP Nurse Practitioner Family; Visit Provider Nurse Practitioner Acute Care
DX: G35 Multiple sclerosis (principal)
CPT/HCPCS: 96365; J2323

== ENCOUNTER 2024-05-04 11:33 | Outpatient (CLI) | payer MEDICARE, SELFPAY ==
[2024-05-04 10:09] LABS: Abs Immature Grans 0.02 10^3/uL (0.0-0.06); Absolute Basophil Count 0.05 10^3/uL (0.0-0.2); Absolute Eosinophil Count 0.21 10^3/uL (0.0-0.7); Absolute Monocyte Count 0.58 10^3/uL (0.1-0.8); Absolute Neutrophil Count 3.38 10^3/uL (1.2-6.7); Basophils % 0.8 %; Eosinophils % 3.3 %; HCT 37.5 % (40.0-50.0); HGB 12.6 g/dL (13.5-17.5); Immature Grans % 0.3 %; Lymphocytes % 33.1 %; MCH 29.6 pg (27.0-33.0); MCHC 33.6 % (32.0-36.0); MCV 88 fL (80-95); MPV 8.9 fL (8.0-11.0); Monocytes % 9.1 %; Neutrophils % 53.4 %; Nucleated RBC 0.3 % (0.0-0.3); Platelet Count 253 10^3/uL (130-400); RBC 4.26 10^6/uL (4.36-5.78); RDW 13.3 % (11.8-14.1); RDW-SD 43.1 fL; WBC 6.34 10^3/uL (4.4-10.8)
[2024-05-04 10:40] LABS: Ferritin 93 ng/mL (26-388)
[2024-05-04 21:04] LABS: PSA, Screening 0.3 ng/mL (<=4.5)
== END 2024-05-04 11:34 | disposition home or self-care (01) ==
LOC: LBO 11:34
PROVIDERS: PCP Nurse Practitioner Family; Visit Provider Internal Medicine Hematology & Oncology
DX: Z12.5 Encounter for screening for malignant neoplasm of prostate (principal); D64.9 Anemia, unspecified
CPT/HCPCS: 36415; 84153; 82728; 85025

== ENCOUNTER 2024-05-31 02:55 | Outpatient (RCR) | payer MEDICARE, SELFPAY ==
[2024-05-16 00:18] VITALS: BP 113/70; PULSE 51; RESP 17; TEMP 36.8
[2024-05-31] MEDS: Normal Saline Flush 10 ML SYR IVP (11:23)
[2024-05-31] MEDS: NATALIZUMAB 300 MG in Normal Saline 100 ML 115 MG IV (11:31)
[2024-05-31 12:01] LABS: HCT 36.1 % (40.0-50.0); HGB 12.3 g/dL (13.5-17.5); MCH 30.1 pg (27.0-33.0); MCHC 34.1 % (32.0-36.0); MCV 89 fL (80-95); MPV 9.7 fL (8.0-11.0); Platelet Count 214 10^3/uL (130-400); RBC 4.08 10^6/uL (4.36-5.78); RDW 13.3 % (11.8-14.1); RDW-SD 43.6 fL; WBC 6.02 10^3/uL (4.4-10.8)
[2024-05-31 12:22] LABS: ALT 31 U/L (16-63); AST 25 U/L (15-37); Albumin 3.6 g/dL (3.4-5.0); Alkaline Phosphatase 61 U/L (46-116); Bilirubin, Direct 0.1 mg/dL (0.0-0.2); Bilirubin, Total 0.57 mg/dL (0.2-1.0); Total Protein 6.8 g/dL (6.4-8.2)
[2024-06-27 12:56] LABS: Stratify JCV Antibody See Comments (Negative)
== END 2024-06-15 23:59 | disposition home or self-care (01) ==
LOC: INF 02:55
PROVIDERS: Student in an Organized Health Care Education/Training Program; PCP Nurse Practitioner Family; Visit Provider Nurse Practitioner Acute Care
DX: G35 Multiple sclerosis (principal)
CPT/HCPCS: 80076; 85027; 96365; J2323

== ENCOUNTER 2024-08-02 04:29 | Outpatient (CLI) | payer MEDICARE, SELFPAY ==
[2024-08-02 09:45] LABS: Abs Immature Grans 0.03 10^3/uL (0.0-0.06); Absolute Basophil Count 0.04 10^3/uL (0.0-0.2); Absolute Lymphocyte Count 2.55 10^3/uL (1.2-3.4); Absolute Neutrophil Count 2.93 10^3/uL (1.2-6.7); Basophils % 0.6 %; Eosinophils % 3.1 %; HCT 38.9 % (40.0-50.0); Immature Grans % 0.5 %; Lymphocytes % 39.5 %; MCH 29.4 pg (27.0-33.0); MCHC 33.4 % (32.0-36.0); MCV 88 fL (80-95); MPV 9.1 fL (8.0-11.0); Monocytes % 10.9 %; Neutrophils % 45.4 %; Platelet Count 203 10^3/uL (130-400); RBC 4.42 10^6/uL (4.36-5.78); RDW 13.7 % (11.8-14.1); RDW-SD 44.4 fL; WBC 6.45 10^3/uL (4.4-10.8)
[2024-08-02 10:18] LABS: ALT 24 U/L (16-63); AST 21 U/L (15-37); Alkaline Phosphatase 72 U/L (46-116); Anion Gap 3.5 mmol/L (3-11); BUN 21 mg/dL (7-18); Bilirubin, Total 0.79 mg/dL (0.2-1.0); CO2 31.5 mmol/L (21.0-32.0); CREATININE 0.8 mg/dL (0.70-1.30); Calcium 8.9 mg/dL (8.5-10.1); Chloride 105 mmol/L (98-107); Estimated GFR 98.21 (mL/min/1.73m2); Ferritin 87 ng/mL (26-388); Glucose 65 mg/dL (74-106); Potassium 4.2 mmol/L (3.5-5.1); Sodium 140 mmol/L (136-145); Total Protein 7.1 g/dL (6.4-8.2)
== END 2024-08-02 04:30 | disposition home or self-care (01) ==
LOC: LBO 04:29
PROVIDERS: Nurse Practitioner Family; PCP Nurse Practitioner Family; Visit Provider Internal Medicine Hematology & Oncology
DX: D50.9 Iron deficiency anemia, unspecified (principal)
CPT/HCPCS: 36415; 80053; 82728; 85025

== ENCOUNTER 2024-08-31 00:38 | Outpatient (RCR) | payer MEDICARE, SELFPAY ==
[2024-06-16 00:11] VITALS: BP 113/70; PULSE 51; RESP 17; TEMP 36.8
[2024-08-31] MEDS: NATALIZUMAB 300 MG in Normal Saline 100 ML 115 MG IV (11:27)
[2024-08-31] MEDS: Normal Saline Flush 10 ML SYR IVP (11:28)
[2024-08-31 12:00] LABS: Calculated LDL 92 mg/dL (<100); Cholesterol 197 mg/dL (<200); HDL Cholesterol 99 mg/dL (40-60); Hemoglobin A1C 5.4 % (<5.7); Triglyceride 33 mg/dL (<150)
[2024-08-31 20:03] LABS: PSA, Screening 0.3 ng/mL (<=4.5)
== END 2024-09-15 23:59 | disposition home or self-care (01) ==
LOC: INF 00:38
PROVIDERS: PCP Nurse Practitioner Family; Visit Provider Nurse Practitioner Acute Care
DX: Z12.5 Encounter for screening for malignant neoplasm of prostate (principal); G35 Multiple sclerosis; Z13.6 Encounter for screening for cardiovascular disorders; Z13.1 Encounter for screening for diabetes mellitus
CPT/HCPCS: 80061; 84153; 96365; 83036; J2323

== ENCOUNTER 2024-10-12 02:45 | Outpatient (RCR) | payer MEDICARE, SELFPAY ==
[2024-10-12] MEDS: NATALIZUMAB 300 MG in Normal Saline 100 ML 115 MG IV (11:46)
[2024-10-12] MEDS: Normal Saline Flush 5 ML SYR IVP (11:46)
[2024-10-12 11:48] LABS: HCT 36.4 % (40.0-50.0); HGB 12.5 g/dL (13.5-17.5); MCH 29.5 pg (27.0-33.0); MCHC 34.3 % (32.0-36.0); MCV 86 fL (80-95); MPV 9.7 fL (8.0-11.0); Platelet Count 232 10^3/uL (130-400); RBC 4.24 10^6/uL (4.36-5.78); RDW 13.6 % (11.8-14.1); WBC 6.14 10^3/uL (4.4-10.8)
[2024-10-12 12:29] LABS: ALT 31 U/L (16-63); AST 20 U/L (15-37); Alkaline Phosphatase 74 U/L (46-116); Bilirubin, Direct 0.2 mg/dL (0.0-0.2); Bilirubin, Total 0.74 mg/dL (0.2-1.0); Total Protein 6.8 g/dL (6.4-8.2)
[2024-10-21 00:23] LABS: Index Value 0.39; JCV Antibody INDETERMINATE
[2024-11-17 10:58] LABS: STRATIFY JCV Ab INH FINAL RSLT: NEGATIVE
== END 2024-10-13 23:59 | disposition home or self-care (01) ==
LOC: INF 02:45
PROVIDERS: Student in an Organized Health Care Education/Training Program; PCP Nurse Practitioner Family; Visit Provider Nurse Practitioner Acute Care
DX: G35 Multiple sclerosis (principal)
CPT/HCPCS: 36415; 80076; 85027; 86711; 96365; J2323

== ENCOUNTER 2024-10-23 06:54 | Day surgery (SDC) | payer MEDICARE, SELFPAY ==
--- NOTE | 2024-10-22 14:50 | W.ANESPRE ---
General Info Date of Service Date Performed: 10/23/24 Height: 6 ft 2 in Weight: 93.894 kg Body Mass Index (BMI): 26.6 Surgical Procedure: Operation Date: 10/23/24 09:05 Proposed Procedure Side Surgeon p Haley Fairbanks MD Meds Allergies and Home Medications Allergies Allergy/AdvReac Type Severity Reaction Status Date / Time Penicillins Allergy Unknown Hives Verified 10/23/24 07:15 Home Medication ?Medication ?Instructions ?Recorded cholecalciferol (vitamin D3) 62.5 62.5 mcg PO DAILY 08/25/23 mcg (2,500 unit) capsule cyanocobalamin (vitamin B-12) 2,500 mcg PO DAILY 08/25/23 2,500 mcg tablet finasteride 5 mg tablet 5 mg PO DAILY 08/25/23 natalizumab 300 mg/15 mL 300 mg (15 mL) IV Q6W 08/25/23 intravenous solution (Tysabri) omeprazole 40 mg capsule,delayed 40 mg PO DAILY 08/25/23 release tadalafil 5 mg tablet 5 mg PO DAILY PRN 08/25/23 aspirin 325 mg capsule 325 mg PO DAILY 10/11/23 baclofen 5 mg tablet 5 mg PO TID 03/21/24 bisacodyl 5 mg tablet,delayed 5 mg PO ONCE #4 tabs 10/12/24 release (Dulcolax (bisacodyl)) polyethylene glycol 3350 17 17 g PO ONCE #238 grams 10/12/24 gram/dose oral powder psyllium husk 0.4 gram capsule 0.4 g PO ONCE 10/23/24 (Daily Fiber) Current Visit Medications: Current Medications Generic Name Dose Route Start Last Admin Trade Name Freq PRN Reason Stop Dose Admin Ringer's Solution 1,000 mls @ 80 mls/hr 10/23/24 06:00 IV 10/23/24 23:59 INFUSION NELLIE IV Miscellaneous Supplies 1 each 10/23/24 06:00 Iv Access IV 10/23/24 23:59 DIRECTED NELLIE Sodium Chloride 0 ml 10/23/24 06:00 Normal Saline Flush 10 Ml Syr IV 10/23/24 23:59 PRN PRN Sodium Chloride 0 ml 10/23/24 06:00 Normal Saline 10 Ml Vial IJ 10/23/24 23:59 DIRECTED PRN Sterile Water 0 ml 10/23/24 06:00 Water,Injection,Sterile 10 Ml Vial IJ 10/23/24 23:59 DIRECTED PRN PFSH Active Problems Active Problems: Problem Status Onset Code Spasticity Acute R25.2 Family history of ischemic heart disease Acute Z82.49 Bradycardia Acute R00.1 Detrusor instability Acute N32.81 IBS (irritable bowel syndrome) Chronic K58.9 Spastic bladder Acute N32.89 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 Anxiety Chronic F41.9 Multiple sclerosis Chronic G35 Medical History Medical History Depression Kidney stone Abnormal stress ECG Surgical History Surgical History History of colonoscopy (~09/2023) [place] History of ureteroscopy (~2016) L ureteroscopy w/ laser lithotripsy and ureteral stent placement, R retrograde scopy w/ stone extraction, stent placement and pyelography Hx of tonsillectomy (~1960) History of colon resection (~11/02/17) [place], CT tubulovillous adenoma w/ focus high gr dyplasia, polypoid mass in desc colon Tobacco Smoking/Tobacco Use Status: Never Passive smoking exposure: Yes Second hand exposure: Yes Alcohol Alcohol Intake: current Alcohol intake frequency: a few times a month Alcohol type: beer and wine Substance Use Substance use: Occasionally Substance use type: marijuana Vital Signs and Lab Results Vital Signs Most Recent Vital Signs in EMR: Temp Pulse Resp BP Pulse Ox 36.2 C L 44 L 16 116/75 100 10/23/24 07:08 10/23/24 07:08 10/23/24 07:08 10/23/24 07:08 10/23/24 07:08 Lab Results Blood Type / Crossmatch: No Data to Display Complete Blood Count: White Blood Count 6.14 10^3/uL (4.4-10.8) 10/12/24 11:20 Red Blood Count 4.24 10^6/uL (4.36-5.78) L 10/12/24 11:20 Hemoglobin 12.5 g/dL (13.5-17.5) L 10/12/24 11:20 Hematocrit 36.4 % (40.0-50.0) L 10/12/24 11:20 Platelet Count 232 10^3/uL (130-400) 10/12/24 11:20 Complete Metabolic Panel: Albumin 4.0 g/dL (3.4-5.0) 10/12/24 11:20 Liver Function Panel: Alanine Aminotransferase (ALT/SGPT) 31 U/L (16-63) 10/12/24 11:20 Aspartate Amino Transf (AST/SGOT) 20 U/L (15-37) 10/12/24 11:20 Coagulation Panel: No Data to Display Cardiac Panel: No Data to Display Arterial Blood Gas: No Data to Display Venous Blood Gas: No Data to Display Pancreas Panel: No Data to Display Thyroid Panel: No Data to Display Infectious Disease: No Data to Display Blood Cultures: No Data to Display Toxicology Panel: No Data to Display Anesthesia Assessment and Plan Anesthesia History Personal History: No History of Anesthesia Complications Family History: No Family History of Anesthesia Complications Exercise Tolerance Exercise Tolerance: Metabolic Equivalents>4 Cardiac & Pulmonary Exam Cardiac Exam: Normal S1/S2 Heart Sounds Pulmonary Exam: Clear Bilateral Breath Sounds Implantable Cardiac Device Does patient have a Pacemaker or an ICD?: No Airway Exam Known Difficult Airway: No Mallampati Class: 4 Mouth Opening: Normal (> 3cm) Thyromental Distance: Greater than 3 cm Neck Range of Motion: Full ROM Neck Circumference: Normal Teeth Condition: Normal Dentition ASA Classification ASA Score: ASA 2 Emergency Case?: No NPO Status NPO Status: NPO Clears >2 hours, Solids >8 hours Anesthesia Plan Resuscitation Status: Full Code Anesthesia Technique: General Anesthesia Airway Planned: Natural Airway Monitors Used: Standard Monitors Preoperative Comments:: 53 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 Sig PMHx: GERD, depression/anxiety, left foot drop, MS/spasticity. never smoker, occ EtOH. Previous Anes: - colo, prop, natural airway, no issues.
[2024-10-23 07:08] VITALS: BP 116/75; PULSE 44; RESP 16; TEMP 36.2; O2SAT 100
[2024-10-23] MEDS: Lactated Ringers 1,000 ML 80 ML IV (07:27)
[2024-10-23 07:30] VITALS: BMI 26.6
--- NOTE | 2024-10-23 08:48 | BOWEL_PTH ---
PATIENT: Jayme Martinez LOC: [facility] U#:[id number] AGE/SX: 64/M ROOM: RE10/23/[address]: Kennedy Fairbanks : 1960 BED: DIS: 10/23/2024 SPEC #: [id number] RECD: 10/23/24 13:00 STATUS: [facility] #: [id number] MARELY: 10/23/24 08:[address]: Kennedy Fairbanks DEPT: Surgical Specimen RECD BY: Keiry Watt ENTERED: 10/23/24 13:04 SP TYPE: Bowel OTHR DR: Kain Nunez, STITCH MARKER Tissues: 1 - STOMACH BIOPSY 2 - STOMACH BIOPSY 3 - ESOPHAGUS BIOPSY 4 - ESOPHAGUS BIOPSY 5 - BIOPSY BOWEL 6 - BIOPSY BOWEL 7 - BIOPSY BOWEL Procedures: GROSS AND MICRO LEVEL 4 Comments: [id number]
[2024-10-23 09:34] VITALS: BP 106/58; PULSE 48; RESP 16; TEMP 36.2; O2SAT 96
--- NOTE | 2024-10-23 09:40 | ENDO_ITS ---
Date of service: 10/23/24 Time of Service: 09:43 Endoscopy Report PROCEDURE DESCRIPTION: PROCEDURES PERFORMED: 1. EGD with biopsies 2. Cold forceps polypectomy PREOPERATIVE DIAGNOSIS: Navas syndrome POSTOPERATIVE DIAGNOSIS: Gastric polyposis, Hill grade 4 type I hiatal (~1cm slide hernia), Borrego's esophagus SURGEON: Carlos Eduardo Fairbanks MD INDICATION FOR PROCEDURE: 64-year-old man who has a history of Navas syndrome. He has not had an upper endoscopy for a number of years. He has no symptoms of concern. Screening/surveillance due routinely. FINDINGS: D4/D3/D2 = normal D1/bulb = normal - no ulcers or inflammation Pylorus = normal Antrum = normal appearance, no ulcers, cold forceps biopsies were taken to rule out H. pylori routinely Body = gastric polyposis - largest 1 removed to assess -estimated 100+ Fundus = gastric polyposis Cardia = normal Hiatus = Hill grade 4 hiatal defect, small slide (1 cm) hiatal type I hiatal hernia Distal esophagus = a single/isolated visible strip of Borrego's esophagus was biopsied with cold forceps technique. Normal non-? inflamed esophagus was biopsied separately. Mid esophagus = normal Proximal esophagus/hypopharynx/vocal cords = normal SURVEILLANCE-INTERVAL/FOLLOW-UP: Needs to be off of PPI, will probably need to consider antireflux surgery as an alternative option for reflux control, annual surveillance for Navas Specimens: Yes EBL: Minimal COMPLICATIONS: None Procedure in detail: The patient gave written consent and was in agreement with the indications, the potential risks as well as the benefits of the procedure. The patient was taken to the endoscopy suite and laid on their left side. Ane sthesia was given which was tolerated well. We performed a timeout and we are in agreement I started the procedure. A well-lubricated endoscope was gently and carefully advanced down the esophagus, into the stomach the scope was and through the pylorus into the duodenum. The endoscopy was ensured to go very deep because of the nature of the indication. I was able to get into the proximal jejunum with certainty. The scope was then slowly withdrawn with the above-noted findings/interventions. The patient tolerated the procedure well and was then turned for colonoscopy (see separate procedure note).
--- NOTE | 2024-10-23 09:42 | W.ANESPOSTOP ---
Postoperative Evaluation Date, Time and Location Date Performed: 10/23/24 Time Performed: 09:42 Patient Location: Day Surgery Unit Vital Signs Most Recent Imported Vital Signs: Most Recent Vital Signs Temp Pulse Resp BP Pulse Ox 36.2 C L 48 L 16 106/58 L 96 10/23/24 09:34 10/23/24 09:34 10/23/24 09:34 10/23/24 09:34 10/23/24 09:34 Pain Score Most Recent Pain Score: Most Recent Pain Score Pain Level 0 10/23/24 09:34 Assessment Mental Status: Awake (Alert & Oriented to Patient Baseline) Airway and Respiratory Function: Patent airway with normal (patient baseline) respiratory exam Cardiovascular Function: Hemodynamically Stable Hydration Status: Adequately Hydrated Nausea & Vomiting: No Nausea or Vomiting Pain: Pt. Denies Any Pain Peripheral Nerve Block: Patient did not receive a nerve block
--- NOTE | 2024-10-23 09:50 | COLE_ITS ---
Date of service: 10/23/24 Time of Service: 09:50 Colonoscopy Report Procedure Description: PROCEDURES PERFORMED: 1. Colonoscopy with hot snare polypectomy 2. Cold forceps polypectomy 3. Ablation/fulguration/destruction of colon polyp PREOPERATIVE DIAGNOSIS: Surveillance colonoscopy, Navas syndrome, colon polyps POSTOPERATIVE DIAGNOSIS: Same SURGEON: Carlos Eduardo Fairbanks MD INDICATION for procedure: The patient is a 64-year-old man with a family history of colon cancer, personal history of Navas syndrome, personal history of colon cancer, and a personal history of polyps removed each time he has a colonoscopy. He has no symptoms of concern. FINDINGS: Terminal ileum and ileocolic anastomosis looks normal. In the transverse colon a sessile 5-7 mm polyp was ablated with the tip of the hot snare. I was unable to get the snare around it so I just ablated it aggressi vely. In the descending colon a 3-5 mm and a 2-3 mm sessile polyp were found together and removed with, piecemeal with cold forceps technique. In the sigmoid colon a pedunculated 5-7 millimeter polyp was removed with hot snare technique. In the rectum a sessile 3-5 mm polyp was removed with hot snare technique. No obvious diverticular disease. Mild grade 1 internal hemorrhoids SURVEILLANCE interval/FOLLOW-UP: 1 year because of the Navas syndrome history. SPECIMENS: yes EBL: Minimal COMPLICATIONS: None QUALITY of prep: Excellent Procedure in detail: The patient gave written consent and was in agreement with the indications, the potential risks as well as the benefits of the procedure. He was turned from upper endoscopy (see separate procedure note) and I started the colonoscopy portion of the procedure. Digital rectal and visual examination was performed and grossly within normal limits. A well-lubricated flexible colonoscope was then introduced and passed without any notable difficulty all the way to the ileocolic anastomosis. The scope was then slowly withdrawn with the above-noted findings. The patient tolerated the procedure well and was taken to the PACU in hemodynamically stable condition.
--- NOTE | 2024-10-23 09:53 | W.PM.DSUDISC ---
Date of service: 10/23/24 Discharge Plan Disposition Patient Disposition: Home Condition: Good Discharge Details Attending Provider: Kennedy Fairbanks Primary Care Provider: Kain Nunez Home Meds and New Rx's Prescriptions: No Action bisacodyl [Dulcolax (bisacodyl)] 5 mg tablet,delayed release (DR/EC) 5 mg PO ONCE Qty: 4 0RF Rx Instructions: Take per colonoscopy instructions provided by ordering providers office polyethylene glycol 3350 17 gram/dose powder 17 g PO ONCE Qty: 238 0RF Rx Instructions: Take per colonoscopy instructions provided by ordering providers office omeprazole 40 mg capsule,delayed release(DR/EC) 40 mg PO DAILY Patient Comments: TAKE ONE CAPSULE BY MOUTH EVERY DAY finasteride 5 mg tablet 5 mg PO DAILY Patient Comments: TAKE ONE TABLET BY MOUTH EVERY DAY tadalafil 5 mg tablet 5 mg PO DAILY PRN Patient Comments: TAKE ONE TABLET BY MOUTH EVERY DAY NEEDED FOR ERECTILE DYSFUNCTION cholecalciferol (vitamin D3) 62.5 mcg (2,500 unit) capsule 62.5 mcg PO DAILY cyanocobalamin (vitamin B-12) 2,500 mcg tablet 2,500 mcg PO DAILY Rx Instructions: 1250mcg daily Tysabri 300 mg/15 mL solution 300 mg IV Q6W Rx Instructions: administer over 60 mins baclofen 5 mg tablet 5 mg PO TID aspirin 325 mg capsule 325 mg PO DAILY psyllium husk [Daily Fiber] 0.4 gram capsule 0.4 g PO ONCE Discharge Instructions Additional Instructions: FINDINGS: On upper endoscopy you have numerous amounts of stomach polyps called gastric polyposis and this is most likely secondary to PPI use. It is a strong recommendation that you STOP using antacid medications, specifically PPIs. You also have a hiatal hernia and this is the underlying reason you has acid reflux and require the antacid medication. There are couple of options to consider about this. You should follow-up in the office to have a discussion about all of this and the management strategies. Call the office and schedule follow-up appointment in the next couple of weeks. On colonoscopy a number of polyps were again found, removed and/or destroyed. You need to continue doing annual upper endoscopy and colonoscopy because of Navas syndrome. Stand Alone Forms: Anesthesia Discharge Inst., Colonoscopy Post Instructions, Kamaljit Taylor (DSU) Activity:: Activity as Tolerated Diet:: As Tolerated
[2024-10-23 10:02] VITALS: BP 103/87; PULSE 40; RESP 16; TEMP 36.4; O2SAT 99
== END 2024-10-23 10:50 | disposition home or self-care (01) ==
LOC: SUR 06:54
PROVIDERS: PCP Nurse Practitioner Family; Visit Provider Student in an Organized Health Care Education/Training Program
PROC: 0DJD8ZZ Inspection of Lower Intestinal Tract, Via Natural or Artificial Opening Endoscopic (ICD-10-PCS; CPT 45378; principal; 2024-10-23 09:00)
DX: Z12.11 Encounter for screening for malignant neoplasm of colon (principal); D12.4 Benign neoplasm of descending colon; K64.0 First degree hemorrhoids; K22.70 Barrett's esophagus without dysplasia; K44.9 Diaphragmatic hernia without obstruction or gangrene; Z15.09 Genetic susceptibility to other malignant neoplasm; K31.7 Polyp of stomach and duodenum; K22.89 Other specified disease of esophagus; D12.8 Benign neoplasm of rectum
CPT/HCPCS: 43239; 45380; 45385; 88305; J2405; J2704

== ENCOUNTER → 2024-11-06 09:01 | Outpatient (BNVA) | payer MEDICARE, SELFPAY | PROVIDERS: PCP Nurse Practitioner Family; Referring Provider Nurse Practitioner Family; Visit Provider Student in an Organized Health Care Education/Training Program | DX: Z48.89 Encounter for other specified surgical aftercare (principal); D12.4 Benign neoplasm of descending colon; D12.8 Benign neoplasm of rectum; K44.9 Diaphragmatic hernia without obstruction or gangrene; Z15.09 Genetic susceptibility to other malignant neoplasm | CPT/HCPCS: 99215 ==

== ENCOUNTER 2024-11-23 01:44 | Outpatient (RCR) | payer MEDICARE, SELFPAY ==
[2024-11-23] MEDS: NATALIZUMAB 300 MG in Normal Saline 100 ML 115 MG IV (12:35)
[2024-11-23] MEDS: Normal Saline Flush 5 ML SYR IVP (12:35)
== END 2024-12-13 23:59 | disposition home or self-care (01) ==
LOC: INF 01:44
PROVIDERS: PCP Nurse Practitioner Family; Visit Provider Nurse Practitioner Acute Care
DX: G35 Multiple sclerosis (principal)
CPT/HCPCS: 96365; J2323

== ENCOUNTER 2025-01-04 02:56 | Outpatient (RCR) | payer MEDICARE, SELFPAY ==
[2025-01-04] MEDS: NATALIZUMAB 300 MG in Normal Saline 100 ML 115 MG IV (11:58)
[2025-01-04 12:06] LABS: HCT 36.2 % (40.0-50.0); HGB 12.4 g/dL (13.5-17.5); MCH 29.5 pg (27.0-33.0); MCHC 34.3 % (32.0-36.0); MCV 86 fL (80-95); MPV 9.5 fL (8.0-11.0); Platelet Count 234 10^3/uL (130-400); RBC 4.21 10^6/uL (4.36-5.78); RDW 13.8 % (11.8-14.1); RDW-SD 43.6 fL; WBC 5.46 10^3/uL (4.4-10.8)
[2025-01-04] MEDS: Normal Saline Flush 10 ML SYR IVP (12:06)
[2025-01-04 12:22] LABS: ALT 31 U/L (16-63); AST 24 U/L (15-37); Albumin 3.8 g/dL (3.4-5.0); Alkaline Phosphatase 70 U/L (46-116); Bilirubin, Direct 0.2 mg/dL (0.0-0.2); Bilirubin, Total 0.6 mg/dL (0.2-1.0); Total Protein 6.5 g/dL (6.4-8.2)
[2025-02-15 15:50] LABS: Misc Referral (UVM) See Comments
== END 2025-01-13 23:59 | disposition home or self-care (01) ==
LOC: INF 02:56
PROVIDERS: Student in an Organized Health Care Education/Training Program; PCP Nurse Practitioner Family; Visit Provider Nurse Practitioner Acute Care
DX: G35 Multiple sclerosis (principal)
CPT/HCPCS: 80076; 85027; 96365; J2323

== ENCOUNTER 2025-01-31 14:34 | Outpatient (CLI) | payer MEDICARE, SELFPAY ==
[2025-01-31 13:19] LABS: Abs Immature Grans 0.02 10^3/uL (0.0-0.06); Absolute Basophil Count 0.02 10^3/uL (0.0-0.2); Absolute Eosinophil Count 0.15 10^3/uL (0.0-0.7); Absolute Lymphocyte Count 2.19 10^3/uL (1.2-3.4); Absolute Monocyte Count 0.69 10^3/uL (0.1-0.8); Absolute Neutrophil Count 3.18 10^3/uL (1.2-6.7); Basophils % 0.3 %; Eosinophils % 2.4 %; HCT 35.7 % (40.0-50.0); HGB 12.4 g/dL (13.5-17.5); Immature Grans % 0.3 %; MCH 29.7 pg (27.0-33.0); MCHC 34.7 % (32.0-36.0); MCV 86 fL (80-95); MPV 8.7 fL (8.0-11.0); Platelet Count 225 10^3/uL (130-400); RBC 4.17 10^6/uL (4.36-5.78); RDW 13.5 % (11.8-14.1); RDW-SD 42.5 fL; WBC 6.25 10^3/uL (4.4-10.8)
[2025-01-31 13:54] LABS: Hemoglobin A1C 5.5 % (<5.7)
[2025-01-31 14:03] LABS: ALT 33 U/L (16-63); AST 26 U/L (15-37); Albumin 3.9 g/dL (3.4-5.0); Alkaline Phosphatase 69 U/L (46-116); Anion Gap 7.1 mmol/L (3-11); BUN 16 mg/dL (7-18); Bilirubin, Total 0.8 mg/dL (0.2-1.0); CO2 26.9 mmol/L (21.0-32.0); CREATININE 0.7 mg/dL (0.70-1.30); Calcium 8.6 mg/dL (8.5-10.1); Chloride 101 mmol/L (98-107); Estimated GFR 102.25 (mL/min/1.73m2); Ferritin 61 ng/mL (26-388); Glucose 92 mg/dL (74-106); Potassium 4.2 mmol/L (3.5-5.1); Sodium 135 mmol/L (136-145); Total Protein 6.9 g/dL (6.4-8.2)
[2025-01-31 14:11] LABS: Calculated LDL 96 mg/dL (<100); Cholesterol 203 mg/dL (<200); HDL Cholesterol 97 mg/dL (>or=40); Triglyceride 52 mg/dL (<150)
[2025-02-01 12:12] LABS: PSA, Screening 0.2 ng/mL (<=4.5)
== END 2025-01-31 14:35 | disposition home or self-care (01) ==
LOC: LBO 14:35
PROVIDERS: PCP Nurse Practitioner Family; Visit Provider Internal Medicine Hematology & Oncology
DX: Z13.1 Encounter for screening for diabetes mellitus (principal); Z13.6 Encounter for screening for cardiovascular disorders; Z12.5 Encounter for screening for malignant neoplasm of prostate; D50.9 Iron deficiency anemia, unspecified
CPT/HCPCS: 36415; 80053; 80061; 84153; 82728; 83036; 85025

== ENCOUNTER 2025-02-22 01:42 | Outpatient (RCR) | payer MEDICARE, SELFPAY ==
[2025-02-22] MEDS: NATALIZUMAB 300 MG in Normal Saline 100 ML 115 MG IV (11:25)
[2025-02-22] MEDS: Normal Saline Flush 10 ML SYR IVP (12:36)
== END 2025-03-15 23:59 | disposition home or self-care (01) ==
LOC: INF 01:42
PROVIDERS: PCP Nurse Practitioner Family; Visit Provider Nurse Practitioner Acute Care
DX: G35 Multiple sclerosis (principal)
CPT/HCPCS: 96365; J2323

== ENCOUNTER 2025-03-07 01:49 | Outpatient (CLI) | payer MEDICARE, SELFPAY ==
--- NOTE | 2025-03-07 08:45 | DI.CT_ITS ---
Exam(s) CT RENAL COLIC WO EXAM: CT RENAL COLIC WO CLINICAL HISTORY: Kidney stone on US, CALCULUS OF KIDNEY N20.0. TECHNIQUE: Imaging Protocol: Axial computed tomography images with coronal and sagittal reformatted images were created and reviewed. Oral: no COMPARISON: No exams were available for comparison FINDINGS: Lung Bases: No acute findings. The heart is enlarged. Liver: Normal density. No suspicious mass. Gallbladder and biliary tract: No radiodense calculus or biliary dilation. Pancreas: Normal density. No abnormal calcifications or inflammatory process. Spleen: Normal. Kidneys: Normal size, contour and axis. 2 millimeter nonobstructing stone upper pole left kidney. 2 millimeter nonobstructing stone mid left kidney. Cyst noted near lower pole of left kidney. No obstructive uropathy. No suspicious masses seen. Adrenal glands: No masses seen. Lymph nodes: Within normal limits. Vasculature: Abdominal aorta non-dilated. Soft tissues: Unremarkable. Bladder: No wall thickening. No mass or calculi. Bowel: No obstruction or bowel wall thickening. Status post right colectomy. The ileocolic anastomosis is unremarkable. Moderate quantity of stool. Peritoneal cavity: No ascites. No focal collection. No mesenteric inflammatory response. Reproductive organs: Metallic seeds in the prostate. Bones: Unremarkable for age. IMPRESSION: Two small nonobstructing stones in the left kidney. RADIATION DOSE DELIVERED: DATA REPOSITORY: All CT scans at this facility are submitted to the National Radiology Data Registry (NRDR) Dose Index Registry (DIR) with the [employer] (A[employer]). RADIATION OPTIMIZATION: All CT scans at this facility use at least one of these dose optimization techniques: automated exposure control; mA and/or kV adjustment per patient size (includes targeted exams where dose is matched to clinical indication); or iterative reconstruction.
== END 2025-03-07 02:09 ==
LOC: DI 01:49
PROVIDERS: PCP Nurse Practitioner Family; Visit Provider Nurse Practitioner Family
DX: N20.0 Calculus of kidney (principal)
CPT/HCPCS: 74176

== ENCOUNTER 2025-03-28 08:30 | Outpatient (CLI) | payer MEDICARE, SELFPAY ==
--- NOTE | 2025-03-28 07:45 | DI.RAD_ITS ---
Exam(s) XR FOOT LT COMPLETE EXAM: XR FOOT LT COMPLETE CLINICAL HISTORY: Left foot pain,M79.672. TECHNIQUE: 2D digital imaging was performed of the left foot. Three images were obtained. AP, oblique and lateral views were obtained. COMPARISON: No exams were available for comparison FINDINGS: BONES: No acute fracture is present. No bony destructive lesion is seen. JOINTS: No dislocation present. There are mild degenerative changes in the foot. Findings are most marked at the 1st MTP joint where there is joint space narrowing and osteophytes. SOFT TISSUE: Normal. IMPRESSION: There is no acute fracture or dislocation. DATA REPOSITORY: RADIATION DOSE DELIVERED:
== END 2025-03-28 08:50 ==
LOC: DI 08:30
PROVIDERS: PCP Nurse Practitioner Family; Visit Provider Podiatrist
DX: M79.672 Pain in left foot (principal); G35 Multiple sclerosis; M21.371 Foot drop, right foot; M21.372 Foot drop, left foot; M20.41 Other hammer toe(s) (acquired), right foot; M20.42 Other hammer toe(s) (acquired), left foot; L84 Corns and callosities; M21.41 Flat foot [pes planus] (acquired), right foot; M21.42 Flat foot [pes planus] (acquired), left foot
CPT/HCPCS: 99213; 73630

== ENCOUNTER 2025-04-05 00:43 | Outpatient (RCR) | payer MEDICARE, SELFPAY ==
[2025-04-05] MEDS: Normal Saline Flush 10 ML SYR IVP (11:35)
[2025-04-05] MEDS: NATALIZUMAB 300 MG in Normal Saline 100 ML 115 MG IV (11:36)
[2025-04-05 11:55] LABS: Abs Immature Grans 0.02 10^3/uL (0.0-0.06); HCT 35.2 % (40.0-50.0); HGB 12.1 g/dL (13.5-17.5); Immature Grans % 0.3 %; MCH 29.4 pg (27.0-33.0); MCHC 34.4 % (32.0-36.0); MCV 86 fL (80-95); MPV 9.7 fL (8.0-11.0); Platelet Count 223 10^3/uL (130-400); RBC 4.11 10^6/uL (4.36-5.78); RDW 13.8 % (11.8-14.1); RDW-SD 43.1 fL; WBC 6.28 10^3/uL (4.4-10.8)
[2025-04-05 12:22] LABS: ALT 34 U/L (16-63); AST 26 U/L (15-37); Albumin 3.8 g/dL (3.4-5.0); Alkaline Phosphatase 60 U/L (46-116); Bilirubin, Direct 0.1 mg/dL (0.0-0.2); Bilirubin, Total 0.6 mg/dL (0.2-1.0); Total Protein 6.8 g/dL (6.4-8.2)
[2025-04-25 10:01] LABS: Index Value 0.42 (<0.20)
== END 2025-04-15 23:59 | disposition home or self-care (01) ==
LOC: INF 00:43
PROVIDERS: Nurse Practitioner Acute Care; PCP Nurse Practitioner Family; Visit Provider Student in an Organized Health Care Education/Training Program
DX: G35 Multiple sclerosis (principal)
CPT/HCPCS: 36415; 80076; 86711; 96365; 85025; J2323

== ENCOUNTER → 2025-05-02 13:42 | Outpatient (BNVA) | payer MEDICARE, SELFPAY | PROVIDERS: PCP Nurse Practitioner Family; Referring Provider Nurse Practitioner Family; Visit Provider Podiatrist | DX: M21.371 Foot drop, right foot (principal); M21.372 Foot drop, left foot; G35 Multiple sclerosis; M20.41 Other hammer toe(s) (acquired), right foot; M20.42 Other hammer toe(s) (acquired), left foot; L84 Corns and callosities; G62.9 Polyneuropathy, unspecified | CPT/HCPCS: 99213 ==

== ENCOUNTER → 2025-06-25 11:01 | Outpatient (BNVA) | payer MEDICARE, SELFPAY | PROVIDERS: PCP Nurse Practitioner Family; Referring Provider Nurse Practitioner Family; Visit Provider Nurse Practitioner Gerontology | DX: N40.0 Benign prostatic hyperplasia without lower urinary tract symptoms (principal); N32.89 Other specified disorders of bladder; N20.0 Calculus of kidney; G35.D Multiple sclerosis, unspecified; Z80.42 Family history of malignant neoplasm of prostate | CPT/HCPCS: 99215 ==

== ENCOUNTER 2025-07-04 03:17 | Outpatient (CLI) | payer MEDICARE, SELFPAY ==
[2025-07-04] MEDS: NATALIZUMAB 300 MG in Normal Saline 100 ML 115 MG IV (13:32)
[2025-07-04] MEDS: Normal Saline Flush 10 ML SYR IVP (13:32)
== END 2025-07-04 03:18 | disposition home or self-care (01) ==
LOC: INF 03:17
PROVIDERS: PCP Nurse Practitioner Family; Visit Provider Nurse Practitioner Acute Care
DX: G35.B0 Primary progressive multiple sclerosis, unspecified (principal)
CPT/HCPCS: 96365; J2323